=== PATIENT | female | born 1995 | race Caucasian/White ===

== ENCOUNTER 2024-12-27 20:21 | Emergency (ER) | payer MEDICAID, OTHER ==
[~2024-12-27] VITALS: Ht 170.2 cm; Wt 72.7 kg
[2024-12-27 22:10] VITALS: TEMP 97.5
[2024-12-27 22:40] LABS: PLATELET COUNT (AUTO) 335 K/uL (150-450); RED BLOOD CELL COUNT(AUTO) 4.56 MIL/uL (4.00-5.20); RED CELL DISTRIBUTION WIDTH 13.1 % (11.5-14.5); WHITE BLOOD COUNT (AUTO) 8.8 K/uL (4.5-11.0)
[2024-12-27 22:58] LABS: COVID AG,FIA SOURCE NASAL SWAB
[2024-12-27 22:58] LABS: CALCIUM, TOTAL 8.4 mg/dL (8.8-10.5); CREATININE 0.44 mg/dL (0.60-1.30); GLOMERULAR FILTR. RATE CALC > 60 mL/min (>60); GLUCOSE,RANDOM 91 mg/dL (70-110); SODIUM SERUM 145 mmol/L (136-145); UREA NITROGEN, BLOOD 5 mg/dL (7-18)
[2024-12-27 23:04] LABS: ASPARTATE AMINOTRANSFERASE 13 U/L (15-37); TOTAL PROTEIN, SERUM 6.3 g/dL (6.4-8.2)
[2024-12-27 23:05] LABS: ALCOHOL, BLOOD (SERUM) < 3 mg/dL (0-10)
[2024-12-27 23:19] LABS: SARS-COV2 (COVID) ANTIGEN,FIA Negative (Negative)
[2024-12-27] MEDS: SODIUM CHLORIDE 0.9% 1,000 ML IV ONE (23:50)
[2024-12-27] MEDS: LORazepam 2 MG/ML VIAL IVP ONE (23:51)
[2024-12-28 08:00] VITALS: BP 117/81; PULSE 84; RESP 16; O2SAT 100
[2024-12-28] MEDS: SODIUM CHLORIDE 0.9% 500 ML IV ONE (08:50)
[2024-12-28] MEDS: LORazepam 2 MG/ML VIAL IVP ONE (08:52)
[2024-12-28 09:09] LABS: APPEARANCE,URINE CLEAR (CLEAR); GLUCOSE, URINE (UA) NEGATIVE (NEGATIVE); LEUKOCYTE ESTERASE ,URINE NEGATIVE (NEGATIVE); NITRATE,URINE NEGATIVE (NEGATIVE); OCCULT BLOOD,URINE LARGE (NEGATIVE); PH,URINE DRUG SCREEN 6.0 (5.0-8.0); SPECIFIC GRAVITIY, URINE 1.029 (1.003-1.030)
[2024-12-28 09:16] LABS: AMPHET/METH SCREEN,URINE NEGATIVE (NEGATIVE); BARBITURATE SCREEN, URINE NEGATIVE (NEGATIVE); CANNABINOID SCREEN,URINE NEGATIVE (NEGATIVE); COCAINE SCREEN,URINE NEGATIVE (NEGATIVE); METHADONE SCREEN, URINE NEGATIVE (NEGATIVE)
[2024-12-28 09:17] LABS: ALCOHOL, URINE DRUG SCREEN NEGATIVE (NEGATIVE)
[2024-12-28 09:20] LABS: SQUAMOUS EPITHELIAL CELL,UR Rare /LPF (None Seen)
[2024-12-28] MEDS ORDERED: TOPI-97 PO (16:39)
[2024-12-28] MEDS ORDERED: ESCI20TA37 PO (16:39)
[2024-12-28] MEDS ORDERED: LURA80TA4 PO (16:39)
[2024-12-28] MEDS ORDERED: BUPR-49 PO (16:39)
== END 2024-12-28 09:26 | disposition admitted as inpatient to this hospital (09) ==
LOC: EMS 20:21
DX: F20.2 Catatonic schizophrenia (principal); F31.9 Bipolar disorder, unspecified; Z00.8 Encounter for other general examination; Z20.822 Contact with and (suspected) exposure to COVID-19
CPT/HCPCS: 99285; 87426; 80048; 80076; 81001; 85025; 36415; 80307; 96374; 96361; G0480; J2060; J7040

== ENCOUNTER 2024-12-28 09:33 | Inpatient (IN) | payer MEDICAID ==
[2024-12-28 12:16] VITALS: BP 115/71; PULSE 70; RESP 18; TEMP 97.7; O2SAT 100
[2024-12-28] MEDS: LORazepam 2 MG/ML VIAL IM ONE (14:03)
[2024-12-28] MEDS ORDERED: ONDANSETRON 4 MG TABLET PO PRN (14:15)
[2024-12-28] MEDS ORDERED: GuaiFENesin/D-METHORPHAN [SUGAR-FREE] 200-20MG/10 ML SYRUP UDCUP PO PRN (14:15)
[2024-12-28] MEDS ORDERED: MAG HYDROX/ALUMINUM HYD/SIMETH ES 30 ML SUSPENSION UDCUP PO PRN (14:15)
[2024-12-28] MEDS ORDERED: MAGNESIUM HYDROXIDE SUSPENSION 30 ML UDCUP PO PRN (14:15)
[2024-12-28] MEDS ORDERED: NICOTINE 14 MG/24 HOUR PATCH TD PRN (14:15)
[2024-12-28] MEDS ORDERED: IBUPROFEN 400 MG TABLET PO PRN (14:15)
[2024-12-28] MEDS ORDERED: ALBUTEROL SULFATE HFA 90 MCG/PUFF 8 GM INHALER IH PRN (14:15)
[2024-12-28] MEDS ORDERED: ACETAMINOPHEN 325 MG TABLET PO PRN (14:15)
[2024-12-28] MEDS ORDERED: LOPERAMIDE HCL 2 MG CAPSULE PO PRN (14:15)
[2024-12-28] MEDS ORDERED: PETROLATUM,WHITE 28 GM JELLY TP PRN (14:15)
[2024-12-28] MEDS ORDERED: LURA80TA4 PO (16:39)
[2024-12-28] MEDS ORDERED: BUPR-49 PO (16:39)
[2024-12-28] MEDS ORDERED: TOPI-97 PO (16:39)
[2024-12-28] MEDS ORDERED: ESCI20TA37 PO (16:39)
[2024-12-28] MEDS: ESCITALOPRAM OXALATE 20 MG TABLET PO SCH (16:45)
[2024-12-28] MEDS: BuPROPion HCL XL 150 MG ER TABLET PO SCH (16:45)
[2024-12-28] MEDS: TOPIRAMATE 25 MG TABLET PO SCH (17:00)
[2024-12-28] MEDS: LURASIDONE HCL 80 MG TABLET PO SCH (17:30)
[2024-12-28 20:01] VITALS: RESP 16
[2024-12-28] MEDS: SPIRONOLACTONE 50 MG TABLET PO SCH (20:56)
[2024-12-29 10:50] VITALS: BP 110/62; PULSE 94; RESP 18; TEMP 91; O2SAT 100
[2024-12-29 12:27] LABS: PLATELET COUNT (AUTO) 317 K/uL (150-450); RED BLOOD CELL COUNT(AUTO) 4.56 MIL/uL (4.00-5.20); RED CELL DISTRIBUTION WIDTH 13.2 % (11.5-14.5); WHITE BLOOD COUNT (AUTO) 6.5 K/uL (4.5-11.0)
[2024-12-29 12:37] LABS: CHOL/HDL RATIO 2.4 (3.9-5.7); LDL CHOL (CALC.) 68.0 mg/dL (0-130)
[2024-12-29 12:55] LABS: ASPARTATE AMINOTRANSFERASE 11 U/L (15-37); CALCIUM, TOTAL 8.3 mg/dL (8.8-10.5); CREATININE 0.55 mg/dL (0.60-1.30); GLOMERULAR FILTR. RATE CALC > 60 mL/min (>60); GLUCOSE,RANDOM 87 mg/dL (70-110); SODIUM SERUM 143 mmol/L (136-145); TOTAL PROTEIN, SERUM 6.0 g/dL (6.4-8.2); UREA NITROGEN, BLOOD 7 mg/dL (7-18)
[2024-12-29] MEDS: DOCUSATE SODIUM 100 MG CAPSULE PO PRN (18:51)
[2024-12-29 21:36] VITALS: BP 99/71; PULSE 110; RESP 18; TEMP 98.8; O2SAT 100
[2024-12-30 15:08] VITALS: BP 118/87; PULSE 96; RESP 17; TEMP 98; O2SAT 100
[2024-12-30 20:05] VITALS: BP 112/78; PULSE 95; RESP 18; TEMP 98.1
[2024-12-31 10:08] VITALS: BP 114/75; PULSE 56; RESP 18; TEMP 98; O2SAT 94
[2024-12-31 21:24] VITALS: BP 119/67; PULSE 61; RESP 18; TEMP 97.7
[2025-01-01 10:25] VITALS: BP 90/64; PULSE 96; RESP 16; TEMP 98; O2SAT 100
[2025-01-01 21:41] VITALS: BP 95/73; PULSE 100; RESP 18; TEMP 98.1; O2SAT 96
[2025-01-02 10:39] VITALS: BP 102/69; PULSE 99; RESP 15; TEMP 98.2; O2SAT 99
[2025-01-02 21:32] VITALS: BP 99/61; PULSE 88; RESP 18; TEMP 98.6; O2SAT 99
[2025-01-03 10:10] VITALS: BP 105/79; PULSE 98; RESP 18; TEMP 97.5; O2SAT 99
[2025-01-03 21:02] VITALS: BP 110/67; PULSE 85; RESP 18; TEMP 97.7
[2025-01-04 14:48] VITALS: BP 94/65; PULSE 89; RESP 18; TEMP 98.4; O2SAT 100
[2025-01-04 21:01] VITALS: BP 91/61; PULSE 86; RESP 18; TEMP 97.6
[2025-01-05 09:21] VITALS: BP 97/67; PULSE 100; RESP 18; O2SAT 97
[2025-01-05 21:46] VITALS: BP 99/69; PULSE 98; RESP 18; TEMP 98.1; O2SAT 100
[2025-01-06 12:13] VITALS: BP 103/70; PULSE 84; RESP 18; TEMP 97.1; O2SAT 99
[2025-01-06 20:02] VITALS: BP 100/74; PULSE 88; RESP 18; TEMP 98.6; O2SAT 99
[2025-01-07 15:21] VITALS: BP 101/68; PULSE 98; RESP 17; TEMP 97.8; O2SAT 97
[2025-01-07 15:34] LABS: ALCOHOL, URINE DRUG SCREEN NEGATIVE (NEGATIVE); AMPHET/METH SCREEN,URINE NEGATIVE (NEGATIVE); BARBITURATE SCREEN, URINE NEGATIVE (NEGATIVE); CANNABINOID SCREEN,URINE NEGATIVE (NEGATIVE); COCAINE SCREEN,URINE NEGATIVE (NEGATIVE); METHADONE SCREEN, URINE NEGATIVE (NEGATIVE)
[2025-01-07 15:37] LABS: APPEARANCE,URINE CLEAR (CLEAR); GLUCOSE, URINE (UA) NEGATIVE (NEGATIVE); LEUKOCYTE ESTERASE ,URINE TRACE (NEGATIVE); NITRATE,URINE NEGATIVE (NEGATIVE); OCCULT BLOOD,URINE NEGATIVE (NEGATIVE); PH,URINE DRUG SCREEN 7.0 (5.0-8.0); SPECIFIC GRAVITIY, URINE 1.010 (1.003-1.030)
[2025-01-07 15:55] LABS: SQUAMOUS EPITHELIAL CELL,UR Rare /LPF (None Seen)
[2025-01-07 20:00] VITALS: BP 96/64; PULSE 80; RESP 18; TEMP 97.6; O2SAT 100
[2025-01-08 09:40] VITALS: BP 109/64; PULSE 85; RESP 18; TEMP 97.5; O2SAT 98
[2025-01-08 20:00] VITALS: BP 107/70; PULSE 79; RESP 18; TEMP 98; O2SAT 99
[2025-01-09 09:00] VITALS: BP 90/60; PULSE 89; RESP 18; TEMP 97.8; O2SAT 99
[2025-01-09 17:00] VITALS: BP 113/72; RESP 18
[2025-01-09 21:17] VITALS: BP 106/70; PULSE 97; RESP 18; TEMP 97.8
[2025-01-10 08:30] VITALS: BP 98/64; PULSE 75; RESP 18; TEMP 98.3
[2025-01-10] MEDS: LURASIDONE HCL 40 MG TABLET PO SCH (16:18)
[2025-01-10 20:00] VITALS: BP 96/64; PULSE 91; RESP 18; TEMP 97.9
[2025-01-11 09:20] VITALS: BP 109/69; PULSE 80; RESP 16; TEMP 98.2; O2SAT 100
[2025-01-11 22:22] VITALS: BP 93/75; PULSE 98; RESP 16; TEMP 97.1; O2SAT 100
[2025-01-12 08:00] VITALS: BP 101/67; PULSE 101; RESP 20; TEMP 97.7; O2SAT 98
[2025-01-12 21:36] VITALS: BP 101/66; PULSE 93; RESP 18; TEMP 97.4; O2SAT 100
[2025-01-13 10:31] VITALS: BP 103/73; PULSE 87; RESP 19; TEMP 98; O2SAT 100
[2025-01-13 20:09] VITALS: BP 95/66; PULSE 94; RESP 18; TEMP 97.8; O2SAT 99
[2025-01-14 08:30] VITALS: BP 102/65; PULSE 86; RESP 17; TEMP 97.5; O2SAT 100
[2025-01-14 21:57] VITALS: BP 98/77; PULSE 102; RESP 18; TEMP 98; O2SAT 100
[2025-01-15 09:00] VITALS: BP 98/64; PULSE 102; RESP 17; TEMP 98; O2SAT 96
[2025-01-15] MEDS: ARIPiprazole LAUROXIL,SUBMICR. ER SUSPENSION 675 MG/2.4 ML SYRINGE IM ONE (17:34)
[2025-01-15] MEDS: ARIPiprazole LAUROXIL ER SUSPENSION 1064 MG/3.9 ML SYRINGE IM ONE (17:34)
[2025-01-15 21:27] VITALS: BP 112/79; PULSE 90; RESP 18; TEMP 97.3; O2SAT 99
[2025-01-16 10:04] VITALS: BP 101/68; PULSE 79; RESP 18; TEMP 98.4; O2SAT 98
[2025-01-16 20:06] VITALS: BP 104/77; PULSE 94; RESP 16; TEMP 98.3; O2SAT 99
[2025-01-17 11:13] VITALS: BP 109/73; PULSE 95; RESP 16; TEMP 97.6; O2SAT 100
[2025-01-17 22:05] VITALS: BP 113/71; PULSE 72; RESP 18; TEMP 98.1; O2SAT 99
[2025-01-18 10:30] VITALS: BP 91/68; PULSE 98; RESP 17; TEMP 97.8; O2SAT 98
[2025-01-18 20:07] VITALS: BP 115/74; PULSE 94; RESP 18; TEMP 98; O2SAT 98
[2025-01-19 09:11] VITALS: BP 110/75; PULSE 87; RESP 17; TEMP 97.5; O2SAT 97
[2025-01-19 22:22] VITALS: BP 112/76; PULSE 92; RESP 18; TEMP 98.2
[2025-01-20] MEDS ORDERED: ARIP10642 IM ×2 (10:52→16:10)
[2025-01-20] MEDS ORDERED: SPIR50TA27 PO (10:53)
[2025-01-20] MEDS ORDERED: METF-1211 PO ×2 (10:54→16:10)
[2025-01-20 11:07] VITALS: BP 108/78; PULSE 87; RESP 18; TEMP 97.6; O2SAT 100
[2025-01-20] MEDS ORDERED: SPIR50TA PO (16:10)
[2025-01-20] MEDS ORDERED: BUPR-50 PO (16:10)
[2025-01-20] MEDS ORDERED: TOPI-257 PO (16:10)
[2025-01-20] MEDS ORDERED: ESCI20TA87 PO (16:10)
[2025-01-20 19:43] VITALS: RESP 18
[2025-01-20 20:05] VITALS: RESP 18
[2025-03-16] MEDS ORDERED: ARIPiprazole LAUROXIL ER SUSPENSION 1064 MG/3.9 ML SYRINGE IM SCH (09:00)
== END 2025-01-20 20:58 | disposition home or self-care (01) | DRG 761 ==
LOC: 3EC 09:33
PROVIDERS: ADMIT Psychiatry & Neurology Psychiatry; ATTEND Psychiatry & Neurology Psychiatry
PROC: GZHZZZZ Group Psychotherapy (ICD-10-PCS; principal; 2024-12-28)
PROC: GZ51ZZZ Individual Psychotherapy, Behavioral (ICD-10-PCS; 2024-12-28)
DX: F25.0 Schizoaffective disorder, bipolar type (principal); F06.1 Catatonic disorder due to known physiological condition; E88.09 Other disorders of plasma-protein metabolism, not elsewhere classified; F43.12 Post-traumatic stress disorder, chronic; F98.8 Other specified behavioral and emotional disorders with onset usually occurring in childhood and adolescence; F94.0 Selective mutism; R00.0 Tachycardia, unspecified; Z79.899 Other long term (current) drug therapy; Z91.148 Patient's other noncompliance with medication regimen for other reason
CPT/HCPCS: 80053; 80061; 80307; 81001; 83036; 84439; 84443; 84702; 85025; 87081; G0480; J2060